=== PATIENT | male | born 2000 | race African-American/Black ===

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

== ENCOUNTER 2023-07-25 05:57 | Emergency (ER) | payer BC, SELFPAY ==
[2023-07-25 06:06] VITALS: BP 130/72; PULSE 79; RESP 14; TEMP 36.7; O2SAT 100
--- NOTE | 2023-07-25 06:15 | W.ED.GENAD ---
HPI General Date/Time Provider Initiated Documentation: 07/25/23 06:03. HPI Narrative: 22-year-old -M[place] male with past medical history of asthma, presents today for evaluation of sore throat runny nose and congestion. Symptoms have been present for the last 3 days. Intermittent fevers at home, Tmax of 100. Mild cough. The patient does smoke marijuana, denies any tobacco use. Patient denies any neck pain or neck stiffness. Minimal frontal headache. No chest pain or shortness of breath. No other complaints at this time. Related Data Home Medications Medication Instructions Recorded Confirmed Unknown [No Known Home Meds] 04/30/19 04/30/19 Allergies Allergy/AdvReac Type Severity Reaction Status Date / Time No Known Allergies Allergy Unverified 04/30/19 07:25 General Stated Complaint: Sorethroat JORGITO: 4 Review of Systems All systems reviewed & are unremarkable except as noted in HPI and below Exam Narrative Exam Narrative: 1.Const: Well-nourished, Well-developed, appearing stated age 2.Eyes: PERRL, no conjunctival injection, and symmetrical lids. 3.ENT: Atraumatic external nose and ears. Moist MM. Neck: Symmetric, trachea midline, No thyromegaly. Patient demonstrates good movement of cervical neck. There is no nuchal rigidity, no nuchal tenderness. Patient is able to flex the neck without any difficulty or significant pain. Negative Kernig's and Brudzinski sign. Minimal erythema in the posterior oropharynx. No tonsillar exudate 4.CVS: +S1/S2, No murmurs or gallops. Peripheral pulses 2+ and equal in all extremities. Brisk capillary refill in all extremities. 5.RESP: Unlabored respiratory effort. Clear to auscultation bilaterally. No wheezes rales or rhonchi 6.GI: Soft, Nontender/Nondistended, No hepatosplenomegaly. No guarding or rebound. 7.MSK: Normocephalic/Atraumatic, Extremities w/o deformity or ttp No cyanosis or clubbing, Normal movement of all extremities 8.Skin: Warm, Dry. No rashes or lesions. 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 Sensation grossly intact, no focal neurologic deficits. 10.Psych: (AAO) x3. Appropriate mood and affect Course Vital Signs Vital signs: Vital Signs Temperature 36.7 C 07/25/23 06:06 Pulse 79 07/25/23 06:06 Respiratory Rate 14 07/25/23 06:06 Blood Pressure 130/72 07/25/23 06:06 Pulse Oximetry 100 07/25/23 06:06 Temperature 36.7 C 07/25/23 06:06 Temperature Source Temporal Artery Scan 07/25/23 06:06 Pulse 79 07/25/23 06:06 Respiratory Rate 14 07/25/23 06:06 Blood Pressure 130/72 07/25/23 06:06 Blood Pressure Position Supine 07/25/23 06:06 Pulse Oximetry 100 07/25/23 06:06 Oxygen Delivery Method Room Air 07/25/23 06:06 Oxygen Flow Rate 0 07/25/23 06:06 Medical Decision Making 22-year-old -[place] male with past medical history of asthma, presents today for evaluation of sore throat runny nose and congestion. Symptoms have been present for the last 3 days. Intermittent fevers at home, Tmax of 100. Mild cough. The patient does smoke marijuana, denies any tobacco use. Patient denies any neck pain or neck stiffness. Minimal frontal headache. No chest pain or shortness of breath. No other complaints at this time. Physical exam demonstrates a well appearing male, no neck stiffness. Lungs are clear. Minimal erythema in the posterior oropharynx. Tympanic membranes are cho and pearly. Suspect viral etiology. Symptoms inconsistent with pneumonia, meningitis, peritonsillar abscess, severe tonsillitis, or other abnormality. Suspect viral upper respiratory infection. Will test for flu COVID and RSV as well as strep. Will monitor closely and reassess. Strep results have returned normal. COVID flu and RSV test was negative. Patient will be sent home with supportive care. Discussed red flags for which to return. I have extensively reviewed the treatment plan and discharge instructions with the patient. I have addressed all patient concerns at this time. The patient was made aware of what symptoms to monitor for that would warrant a return to the emergency department. Discussed the plan with the patient, they demonstrate verbal understanding and agreement with our assessment and plan at this time. The documentation in this chart was dictated using [employer] dictation software. Please excuse any dictation errors. Quality:SDOH Health Related Social Needs: No Data to Display PFSH All Active Problems (Updated 07/25/23 @ 06:37 by Christiano Bonilla DO) Viral URI (Acute) Social History Smoking/Tobacco Use Status: Never Smoking risk assessment performed?: Yes Alcohol Intake: never Substance use type: marijuana Do you feel safe at home: Yes Do you feel safe in your relationship?: Yes Discharge Plan Disposition Patient Disposition: Home Condition: Good Discharge Details Clinical Impression: Viral URI Primary Care Provider: Joseph Pearson ED Provider: Christiano Bonilla Home Meds and New Rx's Prescriptions: No Action No Known Home Meds Discharge Instructions Instructions: Upper Respiratory Infection (ED) Additional Instructions: At this time your symptoms appear consistent with a mild viral upper respiratory infection. We will contact you if your flu or COVID comes back positive. In the meantime please drink plenty of fluids get plenty of rest and stay well-hydrated. Take Tylenol and Motrin as needed for pain. If you notice any worsening of your symptoms, or any new symptoms such as vomiting, diarrhea, fever, chills, shortness of breath, chest pain, numbness, weakness, or fainting , please return immediately to the emergency department for reevaluation. Please follow up with your primary care provider as soon as possible for reassessment and reevaluation. As always, it was a pleasure participating in your medical care today. Stand Alone Forms: Work Release Referrals: Joseph Pearson [Primary Care Provider] -
[2023-07-25 06:36] VITALS: BP 126/68; PULSE 80; RESP 14; TEMP 36.7; O2SAT 100
[2023-07-25 06:40] VITALS: BP 126/68; PULSE 80; RESP 14; O2SAT 100
[2023-07-25 07:08] LABS: COVID-19 PCR Negative (Negative); Influenza A PCR Negative (Negative); Influenza B PCR Negative (Negative); RSV PCR Negative (Negative)
[2023-07-25 07:23] LABS: Source Nasopharynx
== END 2023-07-25 06:42 | disposition home or self-care (01) ==
PROVIDERS: Emergency Provider Student in an Organized Health Care Education/Training Program; PCP Pediatrics
DX: J06.9 Acute upper respiratory infection, unspecified (principal); B34.9 Viral infection, unspecified; Z11.52 Encounter for screening for COVID-19
CPT/HCPCS: 87637; 99283

== ENCOUNTER 2023-08-03 04:52 | Emergency (ER) | payer BC, SELFPAY ==
--- NOTE | 2023-08-03 | DI.US_ITS ---
Exam(s) US RENAL EXAM: US RENAL CLINICAL HISTORY: bilat renal TECHNIQUE: Ultrasound of both kidneys performed using standard protocol. COMPARISON: US US ABDOMEN LIMITED from 08/03/2023 FINDINGS: RIGHT KIDNEY: Measures 10.4 cm in length. No cysts evident. Normal cortical thickness and corticomedullary differen tiation .No solid masses No intrarenal calculi nor hydronephrosis. LEFT KIDNEY: Measures 10.1 cm in length. No cysts evident. Normal cortical thickness and corticomedullary differe ntiaion. No solids masses. No intrarenal calculi nor hydonephrosis. URINARY BLADDER: Prevoid volume is 122 cc Postvoid volume is not measured. Patient was apparently not able to void. Bladder wall appears mildly uniformly thickened. No distinct mass nor radiopaque calculi in the blad balwinder lumen seen. IMPRESSION: 1. No significant ultrasound findings in the kidneys. 2. Mild uniform thickening of the urinary bladder wall noted, similar to CT findings. Correlation w ith any clinical signs of cystitis recommended. DATA REPOSITORY:
[2023-08-03 04:58] VITALS: BP 140/82; PULSE 79; RESP 16; TEMP 36.6; O2SAT 99
[2023-08-03 05:06] VITALS: BP 140/82; PULSE 79; RESP 16; TEMP 36.6; O2SAT 99
--- NOTE | 2023-08-03 05:10 | W.ED.GENAD ---
HPI General Mode of arrival: ambulatory. Date/Time Provider Initiated Documentation: 08/03/23 05:10. Limitations to Documentation: no limitations. Information obtained by: patient (And his girlfriend). HPI Narrative: Time seen was 5:55 AM. The patient is a 22-year-old healthy male who presents with 2 days of abdominal pain and vomiting. He had pain and then had 4 episodes of emesis without diarrhea. There is no blood in the stool or in the emesis. The pain is located in the right upper quadrant. Initially was intermittent but has been constant since 430 this morning. It was severe and has gradually been improving. He denies any sick contacts or recent falls or trauma. He denies ingesting any unusual foods. No foreign travel. No recent antibiotics and no previous similar symptoms. He did have a previous episode about 2 years ago which was associated with vomiting but which he says felt different. The pain does not radiate to his back. He has had chills but no fever. His last meal was chicken with mashed potatoes vegetables with butter. He denies any dysuria or penile discharge. He denies any blood in the stool or emesis. He has no history of prior abdominal surgeries. He denies any family history of gallstones. He does not drink significant amounts of alcohol and does not use nonsteroidal anti-inflammatories on a normal basis. He denies any other additional symptoms such as URI or cold symptoms. No sore throat chest pain or shortness of breath. No dysuria. Initially his pain was about 8 out of 10 but is gradually improved. His pain began 10 minutes after waking this morning at 420 when he usually gets up to work. He has not eaten anything this morning. Related Data Home Medications Medication Instructions Recorded Confirmed Unknown [No Known Home Meds] 04/30/19 08/03/23 Allergies Allergy/AdvReac Type Severity Reaction Status Date / Time No Known Allergies Allergy Unverified 08/03/23 05:03 General Stated Complaint: Nausea/Vomit/Diar JORGITO: 3 Review of Systems Narrative: see hpi Exam Narrative Exam Narrative: The patient is a well-developed well-nourished male who is alert and oriented in no acute distress. GCS is 15. He is normotensive, he is not tachycardic tachypneic or febrile. GCS is 15 Const General: cooperative, healthy appearing, comfortable, no acute distress, well developed, well groomed and well hydrated Nutritional Appearance: average body habitus and well nourished Orientation: alert, awake and oriented x3 HENMT Head: normal to inspection, normocephalic and atraumatic Ears: hearing grossly normal bilaterally and external ears normal General nose exam: external nose normal, nares normal and no nasal discharge Face and sinus: normal facial exam, sinuses nontender and face symmetric Mouth: oral mucosae normal, lip normal, tongue normal, oropharynx normal, moist mucous membranes and other (Normal phonation. The patient is handling secretions.) Throat: posterior oropharynx normal and uvula midline Eyes General: appearance normal, both eyes and all related structures Eyelids: eyelids normal Conjunctivae: conjunctivae normal Sclera: sclerae normal Cornea: corneas normal Pupils: PERRL EOM: EOM intact bilaterally and No nystagmus Neck Neck: normal visual inspection, full ROM, no lymphadenopathy, no meningeal signs, trachea midline and supple Lymphatic: no lymphadenopathy noted Chest Chest: normal inspection of the chest Resp Effort & Inspection: normal respiratory effort, able to speak in complete sentences, no audible wheezes, no nasal flaring, no respiratory distress, no retractions, no stridor, not tachypneic, no tracheal deviation, no use of accessory muscles, No prolonged expiratory phase and other (Normal inspiratory to expiratory ratio.) Auscultation: clear to auscultation bilaterally, no rales, no rhonchi, no wheezes and no rubs Tactile Fremitus: tactile fremitus absent Cardio Jugular venous pressure: no JVD Palpation: normal PMI Rate: regular rate Rhythm: regular rhythm Heart Sounds: S1 normal, S2 normal, no gallops, no murmurs and no rubs GI Inspection: normal to inspection, no abdominal wall ecchymosis, non-distended, no obesity, no scars, no visible herniation and no visible pulsation Palpation: soft, no hepatosplenomegaly, no guarding and nontender Percussion: normal to percussion Auscultation: normal bowel sounds General: No CVA tenderness Male General Exam: Yes normal external exam Penis: normal penis Meatus: meatus normal Scrotum: scrotum normal Testes: normal Back/Spine/Pelvis Back: no CVA tenderness and No back tenderness Cervical Spine: normal cervical lordosis, cervical ROM normal, No cervical muscular tenderness, No pain with cervical ROM, No cervical spinal tenderness and No step off deformity Thoracic/Lumbar Spine: thoracic and lumbar spine normal to inspection, No thoracic spinal tenderness and No lumbar spinal tenderness Pelvis: no pain with anterior-posterior compression and no pain with lateral compression Skin General skin exam: no rashes or lesions noted, turgor normal, no petechiae, no purpura and other (Skin is normal for ethnicity.) Lesions: no lesions Rashes: no rashes Trauma: no lacerations or abrasions Neuro General: patient alert, patient awake, patient oriented x3, moves all extremities, no meningeal signs, no focal motor deficits and CN's II-XI intact bilaterally Cranial Nerves: CN's II-XI intact bilaterally, PERRL, accommodation normal, EOM intact bilaterally, no nystagmus, facial strength normal, tongue midline, hearing normal and no nystagmus Cognition: normal cognition Speech: speech normal Gait: normal gait Motor: muscle tone normal throughout and strength 5/5 throughout Sensory Exam: no sensory deficits noted Pupils: Normal pupillary reactivity/response: bilateral Extrem General: normal to inspection, full ROM, capillary refill normal, no clubbing, cyanosis or edema and no calf tenderness Psych Appearance: grossly normal Affect: normal affect Attitude: cooperative Thought Process: normal Thought Content: normal Insight: insight good Judgment: judgment good Other: The patient appears to have capacity make medical decisions. Course 6:10 AM informal bedside ultrasound appears to show multiple gallstones with a significant wall thickening. We will still obtain a CT to rule out acute cholecystitis. 6:28 AM the patient does have an elevated creatinine and slightly decreased GFR. It is within normal limits to give IV contrast but given his age of 22 I will obtain his CT to a noncontrast and update the patient on his renal function. This may be secondary to mild dehydration though clinically he does not appear extremely dehydrated. 7:20 AM I have reviewed the patient's CT scan and it appears that he has gallstones but I have ordered a formal ultrasound of his gallbladder and kidneys. The patient's girlfriend tells me that he uses supplements including creatine associated with his weightlifting regime. This could be a possible cause for his elevated creatinine. I have advised him to discontinue it as well as to avoid nonsteroidal anti-inflammatories and I advised him if he is discharged to bring his supplements with him to his primary care provider to determine whether this could be an etiology of his renal insufficiency. 9:20 AM I updated the patient on his ultrasound findings and spoke with the patient's mother. I advised the patient and his girlfriend to avoid nonsteroidal anti-inflammatories and use acetaminophen for pain. I advised him to stop all his supplements and to follow-up with his primary care provider and to bring his supplements with him to evaluate this as part of the etiology of his mild renal insufficiency. I also advised he have his kidney function rechecked as soon as possible. I also advised him he would be contacted by the general surgeons office for an appointment to discuss cholecystectomy. Vital Signs Vital signs: Vital Signs Temperature 36.6 C 08/03/23 04:58 Pulse 79 08/03/23 04:58 Respiratory Rate 16 08/03/23 04:58 Blood Pressure 140/82 08/03/23 04:58 Pulse Oximetry 99 08/03/23 04:58 Temperature 36.6 C 08/03/23 05:06 Temperature Source Oral 08/03/23 05:06 Pulse 79 08/03/23 05:06 Respiratory Rate 16 08/03/23 05:06 Respiratory Effort Normal, Non-Labored 08/03/23 05:04 Blood Pressure 140/82 08/03/23 05:06 Blood Pressure Position Sitting 08/03/23 05:06 Pulse Oximetry 99 08/03/23 05:06 Oxygen Delivery Method Room Air 08/03/23 05:06 Oxygen Flow Rate 0 08/03/23 05:06 Pain Level 7 08/03/23 05:06 Lab/Test Results Lab/Test Results: Elevated creatinine was slightly diminished GFR. Normal white count. Mild hemoconcentration Medical Decision Making This is a healthy 22-year-old male who presents with right upper quadrant pain and on informal ultrasound appears to have gallstones. He has had symptoms for 2 days including right upper quadrant abdominal pain which does not radiate to the back. He has not had any diarrhea recent trauma foreign travel or a history of ingesting unusual foods and/or mushrooms. He has not had any blood in the stool or in the emesis. He does not drink significant amount of alcohol making gastritis or pancreatitis. He does uses nonsteroidal anti-inflammatories on a regular basis. He has not had any trauma. My plan is to establish an IV and give him IV fluids. He is declining any pain medicine and currently. His bedside ultrasound does appear to demonstrate gallstones. There is no pain in the right lower quadrant but other considerations include gastritis, gastroenteritis, pancreatitis, mesenteric adenopathy. Given his age I doubt that he has mesenteric ischemia, volvulus or intussusception. My plan is to obtain blood work including a CBC to check for a leukocytosis and or left shift, comprehensive metabolic panel to check his electrolytes renal function and glucose as well as his LFTs, I will check a urinalysis and obtain a CT scan of the abdomen and pelvis. We will hydrate him with IV fluids. If he does have gallstones without evidence of acute cholecystitis we will likely discharge him home and have him follow-up with surgery as an outpatient. Differential Diagnosis Differential Diagnosis: Biliary colic, gastritis, pancreatitis, mesenteric adenitis Medical Records Medical records reviewed: Yes I reviewed the patient's medical records. Imaging Data Radiologic Study: Imaging: CT Scan (Abdomen and pelvis without IV contrast) Radiologist's impression: IMPRESSION: 1. There appears to be uniform thickening of the urinary bladder wall. May be related to cystitis. 2. 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 No evidence of horseshoe kidney. No significant focal renal findings. 3. Preliminary V report states cholelithiasis. I do not see evidence of obvious gallstones. If clinically indicated can be further studied with ultrasound. Radiologic Study #2: Imaging: Ultrasound My impression: IMPRESSION: 1. Cholelithiasis. There are multiple gallstones in the gallbladder lumen. No obvious acute cholecystitis. CBD not dilated. Patient was apparently not tender over this area during scanning today. 2. No other significant ultrasound findings in the right upper quadrant. 3. There is no ascites. Radiologic Study #3: Imaging: Ultrasound (renal) Radiologist's impression: IMPRESSION: 1. No significant ultrasound findings in the kidneys. 2. Mild uniform thickening of the urinary bladder wall noted, similar to CT findings. Correlation with any clinical signs of cystitis recommended. Lab Data Lab results reviewed: Yes I reviewed the patient's lab results. Lab results narrative: decreased renal function. no pancreatitis, no leukocytosis, hemoconcentration. Urine no infection, proteinuria Quality:SDOH Health Related Social Needs: No Data to Display [facility], [facility] All Active Problems (Updated 08/03/23 @ 08:59 by Altagracia Schneider MD) Biliary colic (Acute) Gallstones without obstruction of gallbladder (Acute) Abnormal kidney function (Acute) Viral URI (Acute) Social History Smoking/Tobacco Use Status: Never Smoking risk assessment performed?: Yes Alcohol Intake: never Drug use: Occasionally Substance use type: marijuana Housing: apartment Do you feel safe at home: Yes Do you feel safe in your relationship?: Yes Sign Out Sign Out Data: Sign Out Comment: This patient has been discharged and does not require a signout Last updated by Altagracia Schneider MD at 08/03/23 09:13 Discharge Plan Disposition Patient Disposition: Home Condition: Improving Discharge Details Clinical Impression: Abnormal kidney function, Gallstones without obstruction of gallbladder, Biliary colic Primary Care Provider: Joseph Pearson ED Provider: Altagracia Schneider Home Meds and New Rx's Prescriptions: No Action No Known Home Meds Discharge Instructions Instructions: Biliary Colic (ED), Gallstones (ED), Low Fat Diet (ED), Chronic Kidney Disease Diet (DC), Abdominal Pain (ED) Additional Instructions: 1. You will receive a call from the surgeon's office to arrange a follow-up appointment to discuss your gallstones and elective surgery to remove the gallbladder and stones. Avoid any foods with fats or oils in them. Please see the written instructions on a low-fat diet. Return here if you develop intractable pain, fever, chills or any new or worrisome symptoms. 2. Call your primary care provider for follow-up appointment to have your kidney function rechecked. Stop taking your creatine supplements and avoid nonsteroidal anti-inflammatories such as ibuprofen, Aleve, Motrin and Advil. You can take acetaminophen (acetaminophen) as needed for pain. Bring your supplements with you to your follow-up appointment so they can check to see if this is contributing to your decreased kidney function. 3. Return here for any new or worrisome symptoms. Stand Alone Forms: Work Release Discharge Data Discharge Physician: Altagracia Schneider
[2023-08-03 05:47] LABS: Lactate 1.3 mmol/L (0.6-1.4)
[2023-08-03 05:52] LABS: Abs Immature Grans 0.02 10^3/uL (0.0-0.06); Absolute Basophil Count 0.02 10^3/uL (0.0-0.2); Absolute Eosinophil Count 0.98 10^3/uL (0.0-0.7); Absolute Lymphocyte Count 1.31 10^3/uL (1.2-3.4); Absolute Monocyte Count 1.02 10^3/uL (0.1-0.8); Basophils % 0.3; Eosinophils % 13.9; HCT 51.2 % (40.0-50.0); HGB 17.8 g/dL (13.5-17.5); Immature Grans % 0.3; Lymphocytes % 18.6; MCH 30.2 pg (27.0-33.0); MCHC 34.8 % (32.0-36.0); MCV 87 fL (80-95); Monocytes % 14.5; Neutrophils % 52.4; Platelet Count 242 10^3/uL (130-400); RDW 12.4 % (11.8-14.1); RDW-SD 39.5 fL; WBC 7.05 10^3/uL (4.4-10.8)
[2023-08-03] MEDS: Normal Saline 1,000 ML 1000 ML IV (06:04)
[2023-08-03 06:07] LABS: ALT 30 U/L (16-63); AST 21 U/L (15-37); Alkaline Phosphatase 101 U/L (46-116); Anion Gap 9.5 mmol/L (3-11); BUN 17 mg/dL (7-18); Bilirubin, Total 0.8 mg/dL (0.2-1.0); CO2 29.5 mmol/L (21.0-32.0); CREATININE 2.1 mg/dL (0.70-1.30); Chloride 104 mmol/L (98-107); Glucose 88 mg/dL (74-106); Lipase 24 U/L (16-77); Magnesium 1.8 mg/dL (1.8-2.4); Potassium 3.6 mmol/L (3.5-5.1); Sodium 143 mmol/L (136-145)
[2023-08-03 06:12] LABS: Troponin I < 50 ng/L (< or =60)
--- NOTE | 2023-08-03 06:30 | DI.CT_ITS ---
Exam(s) CT ABDOMEN PELVIS WO EXAM: CT ABDOMEN PELVIS WO CLINICAL HISTORY: Right upper quadrant abdominal pain. TECHNIQUE: Imaging Protocol: Axial computed tomography images with coronal and sagittal reformatted images were created and reviewed CONTRAST MATERIAL: Intravenous: none Oral: None COMPARISON: No exams were available for comparison FINDINGS: VISUALIZED LUNG BASES: Mild increased markings right lung base.. ABDOMEN: There is no ascites. LIVER: There are no obvious focal hepatic lesions evident of this noninfused study. GALLBLADDER/BILIARY: No obvious gallbladder pathology. CBD is not dilated. PANCREAS: No evidence of pancreatic mass nor dilatation of the pancreatic duct. SPLEEN: Spleen is not enlarged. No obvious intrasplenic lesions. ADRENALS: There are no significant adrenal masses. KIDNEYS:Mild developmental mild rotation of the kidneys in that the renal timo are pointing anteriorl y bilaterally. No evidence of horseshoe kidney. No solid renal masses. No calculi nor hydronephrosi s. . ABDOMINAL AORTA: Abdominal aorta is not enlarged. LYMPH NODES: There is no retroperitoneal nor paraaortic adenopathy. ABDOMINAL WALL: No evidence of significant anterior abdominal wall nor inguinal hernia. GI: There is no evidence of bowel obstruction, free air, nor abscess. PELVIS: LYMPH NODES: There is no intrapelvic nor inguinal adenopathy. GI: No evidence of appendicitis.No evidence of sigmoid diverticulitis. URINARY BLADDER: There is mild uniform thickening of the urinary bladder. No distinct mass. No radi opaque calculi in the bladder lumen. Pelvic ureters are not dilated. REPRODUCTIVE: Prostate not enlarged. OSSEOUS: No significant osseous lesions. No fractures IMPRESSION: 1. There appears to be uniform thickening of the urinary bladder wall. May be related to cystitis. 2. 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 No evidence of horseshoe kidney. No signi ficant focal renal findings. 3. Preliminary V RC report states cholelithiasis. I do not see evidence of obvious gallstones. If c linically indicated can be further studied with ultrasound. RADIATION DOSE DELIVERED: 585.66mGy.cm Total DLP DATA REPOSITORY: All CT scans at this facility are submitted to the National Radiology Data Registry (NRDR) Dose Index Registry (DIR) with the [employer] (A[employer]). RADIATION OPTIMIZATION: All CT scans at this facility use at least one of these dose optimization te chniques: automated exposure control; mA and/or kV adjustment per patient size (includes targeted exa ms where dose is matched to clinical indication); or iterative reconstruction.
--- NOTE | 2023-08-03 07:09 | DI.US_ITS ---
Exam(s) US ABDOMEN LIMITED EXAM: US ABDOMEN LIMITED CLINICAL HISTORY: RUQ rule out cholecystitis, and Bilat renal TECHNIQUE: Ultrasound abdomen performed using standard protocol. COMPARISON: No exams were available for comparison FINDINGS: There is no ascites evident. LIVER: There are no hepatic lesions evident nor dilatation of intrahepatic ducts. GALLBLADDER/BILIARY: There are multiple gallstones in the gallbladder lumen. Gallbladder wall does not appear thickened or edematous and there is no pericholecystic fluid. The c ommon hepatic duct isnot dilated, measuring 4mm at the level of joanne hepatis. PANCREAS: There is no evidence of pancreatic mass nor dilatation of the pancreatic duct. RIGHT KIDNEY:No evidence of solid mass, calculus, nor hydronephrosis. No cortical cysts evident. IMPRESSION: 1. Cholelithiasis. There are multiple gallstones in the gallbladder lumen. No obvious acute cholec ystitis. CBD not dilated. Patient was apparently not tender over this area during scanning today. 2. No other significant ultrasound findings in the right upper quadrant. 3. There is no ascites. DATA REPOSITORY:
--- NOTE | 2023-08-03 07:30 | DI.VRAD_ITS ---
PROCEDURE INFORMATION: Exam: CT Abdomen And Pelvis Without Contrast Exam date and time: 08/03/2023 6:53 AM Age: 22 years old Clinical indication: Localized; Right upper quadrant (ruq); Patient HX: Ruq abdominal pain TECHNIQUE: Imaging protocol: Computed tomography of the abdomen and pelvis without contrast. COMPARISON: No relevant prior studies available. FINDINGS: Limitations: No contrast was administered, limiting evaluation for some pathologies. Pleural spaces: Trace right pleural effusion. Atelectasis at the right lung base. Liver: No focal hepatic lesion identified, within the limitations of a noncontrast examination. Gallbladder and bile ducts: Cholelithiasis. Pancreas: No CT evidence for acute pancreatitis. Spleen: No splenomegaly. Adrenal glands: No mass. Kidneys and ureters: Distended left extrarenal pelvis versus parapelvic cyst. Stomach and bowel: No intestinal obstruction is evident. Fluid in nondilated small bowel, nonspecific. Appendix: No evidence of appendicitis. Intraperitoneal space: No free air. Vasculature: No abdominal aortic aneurysm. Lymph nodes: Nonspecific mesenteric lymph nodes. Urinary bladder: Distended urinary bladder. Reproductive: No acute findings. Bones/joints: No pertinent acute abnormality seen. Soft tissues: No pertinent acute abnormality seen. IMPRESSION: 1. Small right pleural effusion with adjacent atelectasis. 2. Cholelithiasis. 3. Nonacute findings as outlined above. Dictated and Authenticated by: Betty Clemons MD. Ordering:DARNELL Frias MD
[2023-08-03 08:16] LABS: Bilirubin Negative (Negative); Blood Negative (Negative); Clarity Clear (Clear); Glucose Negative (Negative); Ketones Trace mg/dL (Negative); Leukocyte Esterase Negative (Negative); Nitrite Negative (Negative)
--- NOTE | 2023-08-03 08:50 | NUR.NOTE ---
Referral faxed to [facility], to be seen as soon as possible
== END 2023-08-03 09:27 | disposition home or self-care (01) ==
PROVIDERS: Emergency Provider Emergency Medicine Emergency Medical Services; PCP Pediatrics
DX: K80.20 Calculus of gallbladder without cholecystitis without obstruction (principal); R94.4 Abnormal results of kidney function studies
CPT/HCPCS: 36415; 76770; 80053; 83690; 96360; 99284; 74176; 76705; 81003; 83605; 83735; 84484; 85025

== ENCOUNTER 2023-08-04 11:44 | Outpatient (CLI) | payer BC, SELFPAY ==
[2023-08-04 11:05] LABS: Hemoglobin A1C 4.8 % (<5.7)
[2023-08-04 11:14] LABS: Anion Gap 7.2 mmol/L (3-11); BUN 11 mg/dL (7-18); CO2 28.8 mmol/L (21.0-32.0); CREATININE 1.8 mg/dL (0.70-1.30); Calcium 9.1 mg/dL (8.5-10.1); Calculated LDL 40 mg/dL (<100); Chloride 107 mmol/L (98-107); Cholesterol 87 mg/dL (<200); Estimated GFR 53.91 (mL/min/1.73m2); Glucose 89 mg/dL (74-106); HDL Cholesterol 37 mg/dL (40-60); Magnesium 1.8 mg/dL (1.8-2.4); Potassium 3.9 mmol/L (3.5-5.1); Sodium 143 mmol/L (136-145); Triglyceride 53 mg/dL (<150)
== END 2023-08-04 11:45 | disposition home or self-care (01) ==
LOC: LBO 11:45
PROVIDERS: PCP Pediatrics; Visit Provider Surgery
DX: K80.20 Calculus of gallbladder without cholecystitis without obstruction (principal); N28.9 Disorder of kidney and ureter, unspecified
CPT/HCPCS: 36415; 80048; 80061; 83036; 83735

== ENCOUNTER 2023-08-09 16:21 | Observation (INO) | payer BC, SELFPAY ==
--- NOTE | 2023-08-08 16:45 | PDOC.DSDIS_ITS ---
Date of service: 08/09/23 Time of Service: 13:49 Discharge Plan Disposition Patient Disposition: Home Condition: Good Discharge Details Reason For Visit: GB removal for stones Attending Provider: Serena Capellan Primary Care Provider: Joseph Pearson Home Meds and New Rx's Prescriptions: New tramadol 50 mg tablet 50 mg PO Q6H PRNQty: 10 0RF ondansetron 4 mg tablet,disintegrating 4 mg PO Q6H PRN (Reason: nausea and vomiting) Qty: 10 0RF Continued acetaminophen [Tylenol Extra Strength] 500 mg tablet 1,000 mg PO Q6H PRN ondansetron 4 mg tablet,disintegrating 4 mg PO Q8H PRN (Reason: nausea and vomiting) Qty: 10 0RF Discharge Instructions Additional Instructions: Care after Gallbladder Surgery -Pain control: ?For the first 72 hours after surgery, take you pain meds continuously and not just when you have pain.?? Alternate Tylenol 1000mg by mouth every 8 hours, and Ibuprofen 600mg every 6 hours.? Make sure you take ibuprofen with food and not on an empty stomach.? ??Use the tramadol for breakthrough pain- pain that is greater than a 7. ?- Use ICE! Ice really helps to keep the swelling down, and swelling causes pain. ??Twenty minutes on, and then off, continuously for the first 72hours.? After the first 72hrs, you can just use the Tylenol, ibuprofen, and ice, when you have pain.?? If you are taking narcotic pain medication, follow the instructions on the label and do not drive. Pain medications can make you very constipated. Make sure you are moving your bowels daily. If not, take Miralax, - Anesthesia makes you very constipated.? Take a dose of milk of magnesia the morning after surgery. ? Use an ice bag for the first 72 hours. This helps to decrease swelling, which causes pain. It is normal to be more sore/painful and swollen towards the end of the day and first thing in the morning. ? Gallbladder surgery can make you very nauseated; use Zofran for nausea, for the first 24 hours. The nausea generally stops after 24 hours. ? Use Miralax ?to prevent constipation (this is a particular side effect of pain medication and anesthesia). Do not allow yourself to become constipated. ? Avoid fatty or greasy foods; introduce these slowly, with care, after about 1 month. High-fat foods include: ? Foods that are fried, like [place] fries and potato chips ? High-fat meats, such as delgado, bologna, sausage, ground beef, and ribs, pork products ? High-fat dairy products, such as cheese, ice cream, cream, whole milk, and sour cream ? Pizza ? Foods made with lard or butter ? Creamy soups or sauces ? Meat gravies ? Chocolate ? Oils, such as palm and coconut oil ? Skin of chicken or turkey ? Nuts and nut butters ? Avocadoes ? Start out eating very small, bland amounts of food. Do not take pain pills on an empty stomach. - You will notice purple discoloration around the incisions.? This is the ?skin glue?.? This will wear off on its own.? It is OK to shower after 24hrs.? You do not need to cover the incisions. -You should walk frequently, gradually, increasing the distance. You may climb stairs, just go slowly. ? Do not go swimming or sit in a hot tub for two weeks. ? There are no stitches to remove. ? Do not drive your car x72hrs and then only if you have no pain and can move freely. Do not drive if you are taking pain narcotic pain medications. ? You may resume sexual activity whenever pain and soreness subside, usually in 2 weeks. ? Do no lift anything over 5 lbs. for two weeks. ? You may return to work in one week, or when you feel able, provided you do not have to do any heavy lifting or prolonged standing. ? You should return to Dr. Capellan?s office for a post-op appointment about two weeks after surgery. A follow-up should have been scheduled for you already.? If there is not, please call the [facility] at: [phone] to schedule an appointment. My Medications for pain and nausea are: Tylenol/ibuprofen ?and ultram- for severe pain (7-10) ?and Zofran-nausea When to Call the Office: ? If the incision becomes red or swollen, or there is more than a little drainage from it. ? If you develop a temperature higher than 100.5 F. ? If your eyes turn yellow ? Vomiting and can?t keep fluids down Activity:: see above Remove Dressings/Wound Care:: 24 hours Shower/Bathe:: 24 hours Diet:: low fat for 2 wks Discharge Orders Discharge Orders: Discharge Order (Routine); Ordered 08/09/23 Ordered By: Serena Capellan DS: Diagnosis Discharge Diagnosis (1) Gallstones without obstruction of gallbladder: Status: Acute Asessment and Plan: ? The patient is doing well post-op from their lap kaitlin.? They are having no nausea or vomiting. They are tolerating liquids and a snack. The pt is not having any chest pain or SOB.? Their pain is adequately controlled. They have been able to urinate.? ?HEENT:? no eye pain/drainage/redness/swelling. Mild sore throat ?Cardio- NSR, no chest pain, BP stable- see VS record ?Pulm: no sob or productive cough. No hemoptysis ?Incision- dressing is c/d/i w/ no excessive bleeding or drainage ?I discussed with the patient the findings at the time of surgery and the patient?s progress. ?We reviewed expectations at home; what the patient could expect for recovery time, and in the post-operative period.? We discussed the importance of walking to avoid blood clots and pneumonia.? We discussed and reviewed the patient's post-operative wound care and dressing needs.?? We reviewed their step-marin pain management plan, Rx called to the pharmacy of their choice.? We reviewed acti vity and limitations-see discharge instructions. We reviewed warning signs, and when to seek medical attention- see d/c instructions.?? Patient was given a postoperative follow-up appointment. Patient verbalized understanding of their postoperative instructions, how do to take care of themselves and their incision, and the pain management plan. Please see discharge instructions.? (2) Biliary colic: Status: Acute (3) Abnormal kidney function: Status: Acute
[2023-08-09] VITALS (17 sets, daily range): BP systolic 97–133; BP diastolic 56–80; PULSE 64–92; RESP 12–25; TEMP 36–36.6; O2SAT 96–100; BMI 24.4
--- NOTE | 2023-08-09 07:08 | ANES.PREOP_ITS ---
General Info Date of Service Date Performed: 08/09/23 Height: 5 ft 11 in Weight: 79.379 kg Body Mass Index (BMI): 24.4 Surgical Procedure: Operation Date: 08/09/23 11:25 Proposed Procedure Side Surgeon p Cholecystectomy Laparoscopic Possible open Serena Capellan, Meds Allergies and Home Medications Allergies Allergy/AdvReac Type Severity Reaction Status Date / Time No Known Allergies Allergy Verified 08/09/23 09:18 Home Medication Medication Instructions Recorded acetaminophen 500 mg tablet 1,000 mg PO Q6H PRN 08/04/23 (Tylenol Extra Strength) ondansetron 4 mg disintegrating 4 mg PO Q8H PRN nausea and 08/04/23 tablet vomiting #10 tabs ondansetron 4 mg disintegrating 4 mg PO Q6H PRN nausea and 08/08/23 tablet vomiting #10 tabs tramadol 50 mg tablet 50 mg PO Q6H PRN #10 tabs 08/08/23 Current Visit Medications: Current Medications Generic Name Dose Route Start Last Admin Trade Name Freq PRN Reason Stop Dose Admin Acetaminophen 1,000 mg 08/09/23 06:00 Acetaminophen 500 Mg Tab PO 08/09/23 23:59 PREOP TRISTON Gabapentin 600 mg 08/09/23 06:00 Gabapentin 300 Mg Cap PO 08/09/23 23:59 PREOP TRISTON Ringer's Solution 1,000 mls @ 80 mls/hr 08/09/23 06:00 IV 08/09/23 23:59 INFUSION TRISTON Cefazolin Sodium/Dextrose 2 gm in 50 mls @ 100 mls/hr 08/09/23 06:00 Ancef Duplex IVPB 08/09/23 23:59 PREOP TRISTON Ondansetron HCl 4 mg/ Sodium 52 mls @ 200 mls/hr 08/09/23 04:43 Chloride IVPB 09/08/23 04:42 Q6H PRN PRN IV Miscellaneous Supplies 1 each 08/09/23 06:00 Iv Access IV 08/09/23 23:59 DIRECTED TRISTON Indocyanine Green 5 mg 08/09/23 04:45 Indocyanine Green 25 Mg Vial IVP 09/08/23 04:44 DIRECTED TRISTON Morphine Sulfate 2 mg 08/09/23 04:43 Morphine 4 Mg/Ml Syr IVP 09/08/23 04:42 Q1H PRN PRN Sodium Chloride 0 ml 08/09/23 06:00 Normal Saline Flush 10 Ml Syr IV 08/09/23 23:59 PRN PRN Sodium Chloride 0 ml 08/09/23 06:00 Normal Saline 10 Ml Vial IJ 08/09/23 23:59 DIRECTED PRN Sterile Water 0 ml 08/09/23 06:00 Water,Injection,Sterile 10 Ml Vial IJ 08/09/23 23:59 DIRECTED PRN Tramadol HCl 100 mg 08/09/23 04:43 Tramadol 50 Mg Tab PO 09/08/23 04:42 Q6H PRN PRN Pain PFSH Active Problems Active Problems: Problem Status Onset Code Biliary colic K80.50 Gallstones without obstruction of gallbladder K80.20 Abnormal kidney function N28.9 Viral URI J06.9 Tobacco Smoking/Tobacco Use Status: Never Alcohol Alcohol Intake: never Substance Use Substance use: Occasionally Substance use type: marijuana Vital Signs and Lab Results Lab Results Blood Type / Crossmatch: No Data to Display Complete Blood Count: White Blood Count 7.05 10^3/uL (4.4-10.8) 08/03/23 05:30 Red Blood Count 5.90 10^6/uL (4.36-5.78) H 08/03/23 05:30 Hemoglobin 17.8 g/dL (13.5-17.5) H 08/03/23 05:30 Hematocrit 51.2 % (40.0-50.0) H 08/03/23 05:30 Platelet Count 242 10^3/uL (130-400) 08/03/23 05:30 Venous Blood Lactate 1.3 mmol/L (0.6-1.4) 08/03/23 05:30 Complete Metabolic Panel: Sodium 143 mmol/L (136-145) 08/04/23 10:40 Potassium 3.9 mmol/L (3.5-5.1) 08/04/23 10:40 Chloride 107 mmol/L (98-107) 08/04/23 10:40 Carbon Dioxide 28.8 mmol/L (21.0-32.0) 08/04/23 10:40 BUN 11 mg/dL (7-18) 08/04/23 10:40 Creatinine 1.8 mg/dL (0.70-1.30) H 08/04/23 10:40 Est GFR (CKD-EPI 2020) 53.91 (mL/min/1.73m2) 08/04/23 10:40 Magnesium 1.8 mg/dL (1.8-2.4) 08/04/23 10:40 Calcium 9.1 mg/dL (8.5-10.1) 08/04/23 10:40 Albumin 4.0 g/dL (3.4-5.0) 08/03/23 05:30 Glucose 89 mg/dL (74-106) 08/04/23 10:40 Hemoglobin A1c 4.8 % (<5.7) 08/04/23 10:40 Liver Function Panel: Alanine Aminotransferase (ALT/SGPT) 30 U/L (16-63) 08/03/23 05: 30 Aspartate Amino Transf (AST/SGOT) 21 U/L (15-37) 08/03/23 05:30 Coagulation Panel: No Data to Display Cardiac Panel: Troponin I < 50 ng/L (< or =60) 08/03/23 Arterial Blood Gas: No Data to Display Venous Blood Gas: No Data to Display Pancreas Panel: Lipase 24 U/L (16-77) 08/03/23 05:30 Thyroid Panel: No Data to Display Infectious Disease: Coronavirus (COVID-19)(PCR) Negative (Negative) 07/25/23 06:20 Coronavirus 2019 Source Nasopharynx 07/25/23 06:20 Influenza Virus Type A (PCR) Negative (Negative) 07/25/23 06:2 0 Influenza Virus Type B (PCR) Negative (Negative) 07/25/23 06:2 0 Respiratory Syncytial Virus (PCR) Negative (Negative) 07/25/23 06:20 Blood Cultures: No Data to Display Toxicology Panel: No Data to Display Anesthesia Assessment and Plan Anesthesia History Personal History: No History of General Anesthesia Family History: No Family History of Anesthesia Complications Exercise Tolerance Exercise Tolerance: Metabolic Equivalents>4 Pertinent Negatives Pertinent Negatives: No Symptoms of GERD, No Major Cardiovascular Symptoms or Complaints, No Major Pulmonary Symptoms or Complaints and No History of CVA/TIA Cardiac & Pulmonary Exam Cardiac Exam: Normal S1/S2 Heart Sounds Pulmonary Exam: Clear Bilateral Breath Sounds Implantable Cardiac Device Does patient have a Pacemaker or an ICD?: No Airway Exam Known Difficult Airway: No Mallampati Class: 1 Mouth Opening: Normal (> 3cm) Thyromental Distance: Greater than 3 cm Neck Range of Motion: Full ROM Neck Circumference: Normal Teeth Condition: Normal Dentition ASA Classification ASA Score: ASA 2 Emergency Case?: No NPO Status NPO Status: NPO Clears >2 hours, Solids >8 hours Anesthesia Plan Resuscitation Status: Full Code Anesthesia Technique: General Anesthesia Airway Planned: Natural Airway Monitors Used: Standard Monitors Preoperative Comments:: 22 yo male with biliary colic for lap kaitlin. Sig PMHx: occ cannabis. no major.
[2023-08-09] MEDS: Acetaminophen 500 MG TAB 1000 MG PO ×2 (09:51→18:38)
[2023-08-09] MEDS: Gabapentin 300 MG CAP 600 MG PO (09:51)
[2023-08-09] MEDS: Lactated Ringers 1,000 ML 80 ML IV (09:51)
[2023-08-09] MEDS: Indocyanine green 25 MG VIAL 5 MG IVP (09:52)
[2023-08-09] MEDS: ceFAZolin 2 GM/50 ML BAG IVPB (12:33)
--- NOTE | 2023-08-09 13:20 | GB_PTH ---
PATIENT: Jersey Ybarra LOC: U#:[id number] AGE/SX: 22/M ROOM: RE08/09/[address]: Serena Capellan : 2000 BED: A DIS: 08/09/2023 SPEC #: [id number] RECD: 08/09/23 17:28 STATUS: CARMELITA REQ #: [id number] SARAN: 08/09/23 13:[address]: Serena Capellan DEPT: Surgical Specimen RECD BY: Iman Talley ENTERED: 08/09/23 17:28 SP TYPE: GB OTHR DR: Joseph Pearson Tissues: 1 - GALLBLADDER Procedures: GROSS AND MICRO LEVEL 3 Comments: [id number]
--- NOTE | 2023-08-09 13:51 | ROE_ITS ---
Date of service: 08/09/23 Time of Service: 13:51 Operative Note Operative Note DATE OF PROCEDURE: 08/09/23 PRE-OP DIAGNOSIS: chronic kaitlin w/ stones POST-OP DIAGNOSIS: same PROCEDURE: laprascopic cholecystectomy SURGEON: Serena Card FORESTRY CONSULTANT: Hari Orourke ANESTHESIA TYPE: Local By Surgeon and General LMA/ETT Refer to Anesthesia Record ESTIMATED BLOOD LOSS: 8 PATHOLOGY: other COMPLICATIONS: None Patient was transported to: PACU Patient's condition: stable Procedure Description: COMPLICATIONS: The patient tolerated the procedure without complication. INDICATIONS: The pt is seen at the request of there PCP regarding acute on chronic cholecystitis, cholelithiasis. The pt has failed outpt conservative medical measures and is here today for laparoscopic cholecystectomy. Informed consent was obtained, explaining risks and benefits of the procedure including but not limited to bleeding, infection, pneumonia, blood clots, possible damage to bowel, bladder, blood vessels, bile ducts, possible open procedure, complications of general anesthesia and other unforetold complications. PROCEDURE: The patient agrees and is brought to the operative room suite and placed in supine position. Pt receives IV ICG preOp to aid w/ bile duct visualization.? Anesthesia was administered per the Department of Anesthesia. The patient did receive IV antibiotics. NG tube and Gorman catheter are placed. The patient was prepped and draped in the usual sterile fashion using DuraPrep scrub solution. Pause for the cause was done. 20 mL of 1% buffered lidocaine was used for local anesthetization. He does have a small umbilical hernia. A stab incision was made in the umbilicus and the Verres inserted. Drop test was positive and insufflation was begun. When 15 mm of pressure was noted on the monitor, the Veress was removed and #10 port inserted. The camera was inserted through the port and shows no damage to underlying structures. A 5 mm port was then placed in the epigastric position under direct visualization following creation of local field blocks as well as two 5 mm ports in the right upper quadrant. The camera was moved to one of the secondary ports so we could view the umbilical trocar site, and there is are no hernias or adhesions. The gallbladder fundus was grasped and retracted towards the right shoulder. Infundibulum was grasped and retracted laterally. The hepat-duodenal ligament is entered. The cystic duct and artery are dissected out and the most inferior portion of the gallbladder plate is removed from the liver and the critical view of safety was obtained after clearing away all fatty material. Endo Clips were placed across the duct and artery and these structures are divided. The remainder of the gallbladder was excised from the liver bed. The gallbladder was placed in a bag and brought out. Examination of the gallbladder shows indeed the cystic duct and artery to have been divided. The remainder of the abdomen was copiously irrigated with a liter of saline. All saline is removed. There is no bleeding or bile leakage from the liver bed or the clips sites. All ports and instruments are removed. Sponge and needle counts are correct. Pneumoperitoneum is evacuated and the port sites are monitored to make sure there is no bleeding at the time of desufflation. ?The fascia under the umbilical port site was closed with 0 Vicryl. The port sites are irrigated. ?Port sites are irrigated and the skin is closed with 4-0 Monocryl in a running subcuticular fashion. Skin glue sterile dressings are applied. The patient tolerated the procedure well without complications, transferred to the recovery room in stable condition. SERENA CARD, DO
--- NOTE | 2023-08-09 16:52 | W.ANESPOSTOP ---
Postoperative Evaluation Date, Time and Location Date Performed: 08/09/23 Time Performed: 16:52 Patient Location: Day Surgery Unit Vital Signs Most Recent Imported Vital Signs: Most Recent Vital Signs Temp Pulse Resp BP Pulse Ox 36.3 C L 82 18 114/72 98 08/09/23 16:32 08/09/23 16:32 08/09/23 16:32 08/09/23 16:32 08/09/23 16:32 Pain Score Most Recent Pain Score: Most Recent Pain Score Pain Level 0 08/09/23 15:45 Assessment Mental Status: Arousable with meaningful communication Airway and Respiratory Function: Patent airway with normal (patient baseline) respiratory exam Cardiovascular Function: Hemodynamically Stable Hydration Status: Adequately Hydrated Nausea & Vomiting: No Nausea or Vomiting Pain: Pt. Denies Any Pain Peripheral Nerve Block: Patient did not receive a nerve block
[2023-08-09] MEDS: Normal Saline 1,000 ML 30 ML IV (17:58)
[2023-08-09] MEDS: Ketorolac 15 MG/ML VIAL IVP (18:38)
[2023-08-09] MEDS: Ondansetron 4 MG/2 ML VIAL IVP (18:38)
== END 2023-08-09 19:38 | disposition home or self-care (01) ==
LOC: MS 18:16
PROVIDERS: Admitting Provider Surgery; PCP Pediatrics; Visit Provider Surgery
PROC: 0FT44ZZ Resection of Gallbladder, Percutaneous Endoscopic Approach (ICD-10-PCS; CPT 47562; principal; 2023-08-09 11:15)
DX: K80.10 Calculus of gallbladder with chronic cholecystitis without obstruction (principal); F12.90 Cannabis use, unspecified, uncomplicated; J45.909 Unspecified asthma, uncomplicated
CPT/HCPCS: 47562; 88304; J0690; J1100; J1885; J2001; J2250; J2405; J2704; J3010; J3475

== ENCOUNTER 2023-08-25 03:16 | Outpatient (CLI) | payer BC, SELFPAY ==
[2023-08-25 15:19] LABS: ALT 39 U/L (16-63); AST 28 U/L (15-37); Albumin 3.9 g/dL (3.4-5.0); Alkaline Phosphatase 96 U/L (46-116); Anion Gap 11.6 mmol/L (3-11); BUN 14 mg/dL (7-18); Bilirubin, Total 0.9 mg/dL (0.2-1.0); CO2 24.4 mmol/L (21.0-32.0); CREATININE 1.5 mg/dL (0.70-1.30); Calcium 8.8 mg/dL (8.5-10.1); Chloride 107 mmol/L (98-107); Estimated GFR 67.09 (mL/min/1.73m2); Glucose 100 mg/dL (74-106); Potassium 4.3 mmol/L (3.5-5.1); Sodium 143 mmol/L (136-145); Total Protein 7.4 g/dL (6.4-8.2)
== END 2023-08-25 03:17 | disposition home or self-care (01) ==
PROVIDERS: PCP Pediatrics; Visit Provider Pediatrics
DX: K80.81 Other cholelithiasis with obstruction (principal)
CPT/HCPCS: 36415; 80053

== ENCOUNTER → 2023-12-19 12:08 | Outpatient (CLI) | payer BC, SELFPAY ==
--- NOTE | 2023-12-19 10:22 | DI.RAD_ITS ---
Exam(s) XR SHOULDER RT COMPLETE 2+V EXAM: XR SHOULDER RT COMPLETE 2+V CLINICAL HISTORY: PAIN OF R SHOULDER JOINT, M25.511. TECHNIQUE: 2D digital imaging was performed. Five views. COMPARISON: No exams were available for comparison FINDINGS: BONES: No acute fracture is present. No bony destructive lesion is seen. JOINTS: No dislocation present. SOFT TISSUE: Normal. IMPRESSION: Unremarkable radiographs of the right shoulder. DATA REPOSITORY: RADIATION DOSE DELIVERED:
== END ==
PROVIDERS: PCP Pediatrics; Visit Provider Nurse Practitioner Family
DX: M25.511 Pain in right shoulder (principal)
CPT/HCPCS: 73030

== ENCOUNTER 2024-03-13 02:15 | Outpatient (CLI) | payer SELFPAY ==
--- NOTE | 2024-03-13 09:00 | DI.MRI_ITS ---
Exam(s) MR UPPER JOINT RT WO EXAM: MR UPPER JOINT RT WO CLINICAL HISTORY: evaluate long head biceps pathology,TENDONITIS LONG HEAD BICEPS BRACHI,m75.. TECHNIQUE: Multiplanar multisequence MRI was performed. COMPARISON: Plain films 19 December 2023 FINDINGS: BONES: There is no fracture or contusion pattern. JOINTS:The acromioclavicular joint is normal. The glenohumeral joint is normal. TENDONS: Supraspinatus: Unremarkable. Infraspinatus: Unremarkable. Subscapularis: Unremarkable. Teres Minor: Unremarkable. Biceps and Dewey: Unremarkable. MUSCLES: Unremarkable. GLENOID LABRUM: Unremarkable on this noncontrast examination. SOFT TISSUES: Unremarkable. OTHER: Subacromial and subdeltoid bursae shows no fluid. . IMPRESSION: Unremarkable MRI of the shoulder. DATA REPOSITORY:
== END 2024-03-13 02:35 ==
PROVIDERS: PCP Pediatrics; Visit Provider Student in an Organized Health Care Education/Training Program
DX: M75.21 Bicipital tendinitis, right shoulder (principal)
CPT/HCPCS: 73221